=== PATIENT | male | born 1990 | race African-American/Black ===

== ENCOUNTER → 2017-05-12 | Outpatient (CLI) | payer OTHER ==
[~2017-05-12] MED LIST: LVMIPEN SQ; NVLGI SC
[2017-05-12 13:46] LABS: HEMOGLOBIN A1C 7.3 % (4.5-5.6)
[2017-05-12 14:22] LABS: ALT/SGPT 57 U/L (12-78); BLOOD UREA NITROGEN 17 mg/dl (7-18); CALCIUM 8.7 mg/dl (8.5-10.1); CARBON DIOXIDE 27 mmol/L (21-32); CHOLESTEROL 169 mg/dl (0-200); CREATININE 1.09 mg/dl (0.60-1.40); GLUCOSE 144 mg/dl (70-99); POTASSIUM 3.6 mmol/L (3.5-5.1); SODIUM 136 mmol/L (136-145)
[2017-05-12 14:32] LABS: ALKALINE PHOSPHATASE 115 U/L (45-117); AST/SGOT 38 U/L (15-37); LDL CHOLESTEROL CALCULATED 86 mg/dl; TOTAL PROTEIN 7.9 gm/dl (6.4-8.2)
== END | disposition home or self-care (01) ==
LOC: C.LAB1850 12:07
PROVIDERS: ATTEND Internal Medicine Endocrinology, Diabetes & Metabolism
DX: E55.9 Vitamin D deficiency, unspecified (principal); E10.9 Type 1 diabetes mellitus without complications